=== PATIENT | female | born 1960 | race Two or more races ===

== ENCOUNTER 2017-07-15 07:38 | Outpatient (CLI) | payer OTHER | END 2017-07-15 07:46 | disposition home or self-care (01) | LOC: MAMO-SONO 07:38 | DX: Z12.31 Encounter for screening mammogram for malignant neoplasm of breast (principal); R92.2 Inconclusive mammogram ==

== ENCOUNTER 2017-12-16 08:31 | Outpatient (CLI) | payer OTHER | END 2017-12-16 08:41 | disposition home or self-care (01) | LOC: SONOGRAMA 08:31 | DX: E04.2 Nontoxic multinodular goiter (principal); E03.8 Other specified hypothyroidism; E06.3 Autoimmune thyroiditis; E78.2 Mixed hyperlipidemia; Z13.1 Encounter for screening for diabetes mellitus; E55.9 Vitamin D deficiency, unspecified; E56.8 Deficiency of other vitamins ==

== ENCOUNTER → 2018-09-22 | Outpatient (CLI) | payer OTHER | END | disposition home or self-care (01) | LOC: MAMO-SONO 08:39 | DX: R92.2 Inconclusive mammogram (principal) ==

== ENCOUNTER → 2018-10-02 | Outpatient (CLI) | payer OTHER | END | disposition home or self-care (01) | LOC: NUCLEAR 09:38 | DX: M81.0 Age-related osteoporosis without current pathological fracture (principal); Z13.820 Encounter for screening for osteoporosis ==

== ENCOUNTER 2019-05-03 13:56 | Outpatient (CLI) | payer OTHER | END 2019-05-03 13:58 | disposition home or self-care (01) | LOC: RAD 13:56 | DX: M54.2 Cervicalgia (principal); M81.0 Age-related osteoporosis without current pathological fracture; M54.6 Pain in thoracic spine ==

== ENCOUNTER 2019-05-08 09:38 | Outpatient (CLI) | payer OTHER | END 2019-05-08 09:57 | disposition home or self-care (01) | LOC: LAB 09:38 | DX: E03.8 Other specified hypothyroidism (principal); M81.0 Age-related osteoporosis without current pathological fracture; E78.01 Familial hypercholesterolemia; E11.9 Type 2 diabetes mellitus without complications ==

== ENCOUNTER 2020-11-27 07:53 | Outpatient (CLI) | payer OTHER | END 2020-11-27 08:03 | disposition home or self-care (01) | LOC: RAD 07:53 | DX: N20.0 Calculus of kidney (principal) ==

== ENCOUNTER 2020-11-28 07:56 | Outpatient (CLI) | payer OTHER | END 2020-11-28 08:10 | disposition home or self-care (01) | LOC: TOM 07:56 | DX: N20.0 Calculus of kidney (principal) ==

== ENCOUNTER 2020-12-08 08:40 | Outpatient (CLI) | payer OTHER | END 2020-12-08 09:00 | disposition home or self-care (01) | LOC: TOM 08:40 | DX: N20.0 Calculus of kidney (principal); D49.89 Neoplasm of unspecified behavior of other specified sites ==

== ENCOUNTER 2020-12-27 08:48 | Outpatient (CLI) | payer OTHER | END 2020-12-27 08:58 | disposition home or self-care (01) | LOC: RAD 08:48 | PROVIDERS: ATTEND Urology | DX: I10 Essential (primary) hypertension (principal); R31.0 Gross hematuria; N13.0 Hydronephrosis with ureteropelvic junction obstruction ==

== ENCOUNTER 2021-02-28 13:37 | Outpatient (CLI) | payer OTHER | END 2021-02-28 13:47 | disposition home or self-care (01) | LOC: SONOGRAMA 13:37 | DX: N13.39 Other hydronephrosis (principal); C67.8 Malignant neoplasm of overlapping sites of bladder ==

== ENCOUNTER 2021-05-18 13:11 | Outpatient (CLI) | payer OTHER | END 2021-05-18 16:48 | disposition home or self-care (01) | LOC: RAD 13:11 | DX: C67.9 Malignant neoplasm of bladder, unspecified (principal); C66.9 Malignant neoplasm of unspecified ureter; Z85.51 Personal history of malignant neoplasm of bladder ==

== ENCOUNTER 2021-07-19 14:37 | Outpatient (CLI) | payer OTHER | END 2021-07-19 15:00 | disposition home or self-care (01) | LOC: RAD 14:37 | PROVIDERS: ATTEND Internal Medicine | DX: K56.609 Unspecified intestinal obstruction, unspecified as to partial versus complete obstruction (principal) ==

== ENCOUNTER 2021-07-23 08:28 | Emergency (ER) | payer OTHER ==
[~2021-07-23] VITALS: Ht 160 cm; Wt 57.2 kg
[2021-07-23] MEDS ORDERED: INTEGRA PLUS C1 EACH PO (08:47)
[2021-07-23] MEDS ORDERED: MIRALAX17 GM PO (08:47)
[2021-07-23] MEDS ORDERED: SYNTHROID88 MCG PO (08:47)
[2021-07-23] MEDS ORDERED: HYDROCORT-PRAMO30 G1 RC (08:48)
== END 2021-07-23 19:00 | disposition left against medical advice (07) ==
LOC: ER 08:28
DX: K59.00 Constipation, unspecified (principal); E03.9 Hypothyroidism, unspecified

== ENCOUNTER → 2022-02-22 14:17 | Outpatient (CLI) | payer OTHER ==
[~2022-02-22 14:17] MED LIST: HYDROCORT-PRAMO30 G1 RC; INTEGRA PLUS C1 EACH PO; MIRALAX17 GM PO; SYNTHROID88 MCG PO
== END | disposition home or self-care (01) ==
LOC: MRI 14:17
DX: M54.12 Radiculopathy, cervical region (principal); M54.2 Cervicalgia
CPT/HCPCS: 72141

== ENCOUNTER 2022-05-27 07:58 | Emergency (ER) | payer OTHER ==
[~2022-05-27] VITALS: Ht 160 cm; Wt 54.4 kg
[2022-05-27] MEDS ORDERED: SYNTHROID100 MCG PO (08:19)
[2022-05-27] MEDS ORDERED: PYRIDIUM100 MG PO (08:21)
[2022-05-27] MEDS ORDERED: ZYRTEC10 M3 PO (12:14)
[2022-05-27] MEDS ORDERED: MOMETASONE FURO15 G2 TOP (12:14)
== END 2022-05-27 12:50 | disposition home or self-care (01) ==
LOC: ER 07:58
DX: R21 Rash and other nonspecific skin eruption (principal); E03.9 Hypothyroidism, unspecified; Z85.51 Personal history of malignant neoplasm of bladder

== ENCOUNTER 2024-12-16 07:30 | Outpatient (CLI) | payer OTHER ==
[~2024-12-16 07:30] MED LIST changes: +MOMETASONE FURO15 G2 TOP; +PYRIDIUM100 MG PO; +SYNTHROID100 MCG PO; +ZYRTEC10 M3 PO
== END 2024-12-16 07:40 | disposition home or self-care (01) ==
LOC: TOM 07:30
PROVIDERS: ATTEND Internal Medicine
DX: E78.9 Disorder of lipoprotein metabolism, unspecified (principal); R11.2 Nausea with vomiting, unspecified